=== PATIENT | male | born 2000 | race Caucasian/White ===

== ENCOUNTER 2021-06-07 16:27 | Emergency (ER) | payer OTHER, SELFPAY ==
--- NOTE | ~2021-06-07 | CT_ITS ---
EXAMINATION: CT cervical spine wo con DATE: 06/07/2021 18:27 INDICATION: Neck pain after 12 foot fall TECHNIQUE: Computed tomography (CT) of the cervical spine was performed without intravenous contrast. The dose-length product was 410 mGy-cm. Automated exposure control and iterative reconstruction tech nique were employed. COMPARISON: None FINDINGS: Vertebral body and disc heights are preserved. No fracture, subluxation or dislocation. Odo ntoid process within normal limits. No prevertebral soft tissue abnormality. Lung apices are normal. No significant paraspinal soft tissue abnormality. No evidence for perched facet. Spinous processes a re normal limits. IMPRESSION: 1. No acute abnormality of the cervical spine. Reviewed, dictated and finalized at location A.
--- NOTE | ~2021-06-07 | CT_ITS ---
EXAMINATION: CT BRAIN W/O DATE: 06/07/2021 18:27 INDICATION: 12 foot fall. Head injury. TECHNIQUE: Computed tomography (CT) of the head was performed without intravenous contrast. The dose- length product was 605.33 mGy-cm. COMPARISON: No prior studies for comparison. FINDINGS: Normal brain parenchymal volume for age. Normal medrano-white differentiation. No acute intrac ranial hemorrhage, infarction, mass or mass effect. No ventriculomegaly or midline shift. Midline sagittal images demonstrate a normal corpus callosum, c raniovertebral junction and sella turcica. Basilar cisterns are patent. Paranasal sinuses and mastoids are pneumatized. No depressed skull fractures. IMPRESSION: 1. No acute intracranial abnormality. Reviewed, dictated and finalized at location A.
[2021-06-07 17:03] VITALS: BP 136/59; PULSE 102; RESP 16; TEMP 37.3; O2SAT 98
[2021-06-07 18:09] VITALS: BP 111/61; PULSE 75; RESP 16; O2SAT 98
--- NOTE | 2021-06-07 18:36 | ED.HEATRA ---
HPI - Head Injury General Chief complaint: Head Injury Stated complaint: head injury Time Seen by Provider: 06/07/21 18:09 Source: patient Mode of arrival: ambulatory Limitations: no limitations History of Present Illness HPI Narrative: Patient is a 21 year old male who presents complaining of headache and neck pain. Patient reports that he fell 12 foot off of scaffolding 2 days ago. He report the scaffolding board and approximately 80 lbs of materials fell on patient's head. He reports he reached hand up to block head. Patient reports he was wearing hard hat and denies LOC. He reports being seen yesterday for fracture of hand that has been currently treated. Patient reports headache and neck pain x 1 day and reports the need for evaluation of head and neck because patient is in the and was told to have exam. MD Complaint: head injury and head pain Related Data Allergies Allergy/AdvReac Type Severity Reaction Status Date / Time No Known Allergies Allergy Verified 12/01/19 17:53 Review of Systems Review of Systems: Narrative: CONSTITUTIONAL: Denies fever, chills, or sweats. EYES: Denies visual changes, redness, or discharge. ENT: Denies rhinorrhea, congestion, sore throat, or otalgia. Reports neck pain. CARDIOVASCULAR: Denies chest pain, palpitations, or edema. RESPIRATORY: Denies cough or dyspnea. GASTROINTESTINAL: Denies abdominal pain, nausea, vomiting, or diarrhea. GENITOURINARY: Denies dysuria or hematuria. SKIN: Denies rash or itching. MUSCULOSKELETAL: Denies back pain, joint pain, or myalgia. NEUROLOGIC: Reports headache, denies numbness, dizziness, or weakness. PSYCHIATRIC: Denies anxiety or depression. [facility] Social History Social History (Updated 06/07/21 @ 18:43 by GINA Laird) Smoking status: Never smoker Alcohol intake: current Alcohol use details: Occasional Substance use: current Substance use type: marijuana Other substance usage details: Occasional Living arrangements: with family Gender identity (if verbalized by the patient): Male Comments At the time of signature, I have reviewed and agree with nursing past medical, surgical, social, and family history unless otherwise noted. Please see nursing chart for further information. There is no relevant family history pertinent to the presenting complaint. Exam Narrative: Exam Narrative: GENERAL: Well-appearing, well-nourished, and in no acute distress. HEAD: Normocephalic, atraumatic. EYES: EOMI. No redness or drainage. Conjunctiva are normal. ENT: Mucous membranes pink and moist. Nares clear. No rhinorrhea. TMs normal bilaterally. Throat normal. Uvula midline. NECK: AROM. Supple. No lymphadenopathy. Tenderness with palpation to left cervical spine CHEST: No respiratory distress. Clear to auscultation. HEART: Regular rate and rhythm. EXTREMITIES: Normal range of motion. No edema. SKIN: Warm, dry, no rash. NEURO: No focal deficits. Alert and oriented x3. Gait steady. PSYCH: Normal affect. No signs of depression or anxiety. Course Vital Signs Vital signs: Vital Signs Temperature 37.3 C 06/07/21 17:03 Pulse Rate 102 H 06/07/21 17:03 Respiratory Rate 16 06/07/21 17:03 Blood Pressure 136/59 L 06/07/21 17:03 Pulse Oximetry 98 06/07/21 17:03 Temperature 37.3 C 06/07/21 17:03 Pulse Rate 75 06/07/21 18:09 Respiratory Rate 16 06/07/21 18:09 Blood Pressure 111/61 06/07/21 18:09 Pulse Oximetry 98 06/07/21 18:09 Reviewed MDM - Head Injury MDM Narrative Medical decision making narrative: Patient CT negative for acute injury. Discussed with patient most likely musculoskeletal pain. Discussed taking Tylenol and ibuprofen for pain, following up with PCP as needed. Patient agrees with plan of care. Patient stable for discharge home with outpatient follow-up as needed. Critical Care Time Critical Care Time Critical Care Time: No Discharge Plan Discharge Clinical Impression:
== END 2021-06-07 18:55 | disposition home or self-care (01) ==
PROVIDERS: Emergency Provider Nurse Practitioner
DX: S06.0X0A Concussion without loss of consciousness, initial encounter (principal); W12.XXXA Fall on and from scaffolding, initial encounter
CPT/HCPCS: 70450; 72125; 99284

== ENCOUNTER 2022-12-04 14:04 | Emergency (ER) | payer BC, SELFPAY ==
--- NOTE | 2022-12-04 14:11 | ED.NAVMDI ---
HPI - Nausea/Vomiting/Diarrhea General Chief complaint: Nausea/Vomiting/Diarrhea Stated complaint: nausea Time Seen by Provider: 12/04/22 14:11 Source: patient and RN notes reviewed History of Present Illness HPI Narrative: patient is a 22-year-old male who presents to urgent care with complaints of nausea, diarrhea and fever. Patient states it started midday yesterday after eating lunch. Patient states he had diarrhea all last night and has not had a loose stool since then. Patient vomited approximately 10:00 a.m. this morning after attempting to eat breakfast. Patient also reports of nasal congestion. 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 Patient has been taking Tylenol for the fever. No other acute complaints. Patient aware of the plan of care. Some parts of this dictation were generated by voice recognition software and may contain typographical and/or grammatical inaccuracies. Related Data Home Medications Medication Instructions Recorded Confirmed albuterol sulfate 90 mcg/actuation inhalation 12/04/22 12/04/22 aerosol inhaler Allergies Allergy/AdvReac Type Severity Reaction Status Date / Time No Known Allergies Allergy Verified 12/04/22 14:22 Review of Systems Review of Systems: CONSTITUTIONAL: Denies fever, chills, or sweats. EYES: Denies visual changes, redness, or discharge. ENT: reports postnasal drainage and congestion CARDIOVASCULAR: Denies chest pain, palpitations, or edema. RESPIRATORY: Denies cough or dyspnea. GASTROINTESTINAL: Reports of nausea and vomiting with diarrhea. Denies abdominal pain GENITOURINARY: Denies dysuria or hematuria. SKIN: Denies rash or itching. MUSCULOSKELETAL: Denies back pain, joint pain, or myalgia. NEUROLOGIC: Denies headache, numbness, or weakness. All other systems reviewed are negative, except as documented in HPI. [facility] Social History Social History (Updated 06/07/21 @ 18:43 by Elisa Alexander, [employer]LECT[employer]EARCH ENGINE[employer]) Smoking status: Never smoker Alcohol intake: current Alcohol use details: Occasional Substance use: current Substance use type: marijuana Other substance usage details: Occasional Gender identity (if verbalized by the patient): Male Comments At the time of my signature, I reviewed and agree with the nursing past medical, surgical, social, and family history. There is no relevant family history pertinent to the patient complaint. Exam Narrative: GENERAL: This is a well-nourished, well-developed patient, appears fatigued HEAD: normocephalic, atraumatic. EYES: PERRL. Sclera clear/white. Vision is grossly intact. EARS: External ears normal, auditory canals clear and without drainage, TMs normal without perforation. Hearing grossly intact. NOSE: External nose normal with no obvious nasal discharge, nares without redness, clear to yellow rhinorrhea. notable nasal congestion THROAT: Mucous membranes moist, posterior pharynx clear. moderate postnasal drainage NECK: Neck supple, non-tender without lymphadenopathy CARDIOVASCULAR: Regular rate and rhythm without murmurs, gallops, or rubs. RESPIRATORY: Clear to auscultation. Breath sounds equal bilaterally. No wheezes, rales, or rhonchi. GASTROINTESTINAL: Abdomen soft, non-tender, nondistended. Bowel sounds are hyperactive. SKIN: warm, intact with no suspicious lesions or rash, good texture and turgor. NEURO: awake, alert, and oriented to person, place and time. There were no obvious focal neurologic abnormalities. EXTREMITIES: No clubbing, cyanosis, or edema. Course Course Level of Care: Express Care Visit Vital Signs Vital signs: Vital Signs Temperature 99.5 F 12/04/22 14:12 Pulse Rate 107 H 12/04/22 14:12 Respiratory Rate 20 12/04/22 14:12 Blood Pressure 139/72 12/04/22 14:12 Pulse Oximetry 98 12/04/22 14:12 Oxygen Delivery Room Air 12/04/22 14:12 Temperature 99.5 F 12/04/22 14:12 Pulse Rate 107 H 12/04/22 14:12 Re
[2022-12-04 14:12] VITALS: BP 139/72; PULSE 107; RESP 20; TEMP 37.5; O2SAT 98
== END 2022-12-04 14:37 | disposition home or self-care (01) ==
PROVIDERS: Emergency Provider Nurse Practitioner Family
DX: R11.2 Nausea with vomiting, unspecified (principal)
CPT/HCPCS: 99213; G0463

== ENCOUNTER 2024-08-04 15:47 | Emergency (ER) | payer BC, SELFPAY ==
[2024-08-04 15:55] VITALS: BP 136/65; PULSE 92; RESP 20; TEMP 37.2; O2SAT 100
[2024-08-04 16:24] LABS: EDINFLUASCREEN Negative; EDINFLUBSCREEN Negative
--- NOTE | 2024-08-04 16:28 | ED.URI ---
HPI - URI/Sore Throat General Chief Complaint: Upper Respiratory Infection Stated Complaint: Congestion/Fever/Vomiting/Diarrhea Time Seen by Provider: 08/04/24 16:10 Source: patient, RN notes reviewed and old records reviewed Mode of arrival: ambulatory Limitations: no limitations History of Present Illness HPI Narrative: 24 year old male presents to [facility] care with complaints of 2 day history of cough, congestion, fevers, chills and body aches since yesterday. Patient reports that he has taken 2 home COVID test which have been negative. Patient reports that he also has been having some vomiting and diarrhea. Patient reports that he is suppose to go on 3 day trip with miitary leaving at 0600 tomorrow and concerned with illness. Patient reports that he has been taking Tylenol for his symptoms. MD elicited complaint: cough and other (fevers, chills, body aches,vomiting and diarrhea) Onset (ago): day(s) (2) Consistency: constant Pain scale (0-10): 5 Able to tolerate fluids by mouth: Yes Treatments prior to arrival: acetaminophen Related Data Allergies Allergy/AdvReac Type Severity Reaction Status Date / Time No Known Allergies Allergy Verified 08/04/24 16:13 Review of Systems Review of Systems: CONSTITUTIONAL: Reports malaise, chills, sweats, or fever. EYES: Denies visual changes, redness, or discharge. ENT: Reports rhinorrhea, congestion, sinus pain, no otalgia and no sore throat. CARDIOVASCULAR: Denies chest pain, palpitations, or edema. RESPIRATORY: Reports cough.? Denies dyspnea. GASTROINTESTINAL: Denies abdominal pain, reports nausea, vomiting, diarrhea SKIN: Denies rash or itching. MUSCULOSKELETAL: Reports myalgia. NEUROLOGIC: Reports headache. All systems reviewed & are unremarkable except as noted in HPI and below PMFSH Past Medical History Medical History (Updated 08/06/24 @ 13:07 by Anna Marie Pacheco NP) Seasonal allergies Surgical History Surgical History (Updated 08/06/24 @ 12:59 by Anna Marie Pacheco NP) H/O shoulder surgery bilateral rotator cuff and labrum repairs, right bicep repair and AC joint H/O wrist surgery right Social History Social History (Updated 08/06/24 @ 12:58 by Anna Marie Pacheco NP) Smoking status: Former smoker Alcohol intake: current Alcohol use details: Occasional Substance use type: does not use Other substance usage details: Occasional Living arrangements: with family Gender identity (if verbalized by the patient): Male Comments At time of signature, agree with nursing past medical, surgical, social and family history. There is no relevant family history pertinent to the presenting complaint Exam Narrative: GENERAL: Ill-appearing, well-nourished, and in no acute distress. HEAD: Normocephalic EYES: PERRLA, conjunctivae clear ENT: Nares clear, turbinates edematous and erythematous, clear discharge. Mucous membranes moist. TM pearly medrano with dull light reflex bilaterally; no tragal tenderness. Oropharynx erythematous without lesions. Tonsils not enlarged and without exudate, no drooling, no hoarseness, no trismus, uvula midline.post nasal drainage NECK: Supple. No lymphadenopathy CHEST: Clear to auscultation, breath sounds equal. No wheezing, rhonchi, rales, or stridor. No respiratory distress, speaks in full sentences cough SAO2 100% on room air. GASTROINTESTINAL: Abdomen soft and non tender, no distention, positive for nausea and vomiting and diarrhea HEART: Regular rate and rhythm. No murmur heard. SKIN: Warm, dry, no rash. NEURO: Alert and oriented x3. PSYCH: Normal mood and affect Course Course Emergency Course: Patient is aware of diagnosis, understands and agrees to treatment plan.? Anticipatory guidance given.? Patient agrees to follow-up as directed and is aware of reasons to seek care at the emergency department. Portions of this record may have been created with voice recognition software Level of Car
[2024-08-04 16:47] LABS: EDSTREPNEGPOS1 Negative
== END 2024-08-04 17:00 | disposition home or self-care (01) ==
PROVIDERS: Emergency Provider Registered Nurse
DX: J06.9 Acute upper respiratory infection, unspecified (principal); R11.2 Nausea with vomiting, unspecified; R19.7 Diarrhea, unspecified; Z20.822 Contact with and (suspected) exposure to COVID-19; Z87.891 Personal history of nicotine dependence
CPT/HCPCS: 87081; 87426; 87804; 87880; 99213; G0463